=== PATIENT | male | born 1970 | race Caucasian/White ===

== ENCOUNTER 2019-06-29 11:09 | Outpatient (CLI) | payer BC ==
[2019-06-29 11:53] LABS: Hemoglobin 15.1 g/dL (14.0-18.0); Mean Corpuscular HGB CONC 32.4 g/dL (32.0-36.0); Mean Corpuscular Hemoglobin 28.3 pg (27.0-31.0); Mean Corpuscular Volume 87.3 fL (78.0-98.0); Mean Platelet Volume 7.9 fL (7.4-10.4); Platelet Count 260 thou/uL (130-400); RBC Distribution Width 12.2 % (11.5-14.5); Red Blood Cell (RBC) Count 5.36 mill/uL (4.70-6.10); White Blood Cell (WBC) Count 7.8 thou/uL (4.8-10.8)
[2019-06-29 12:14] LABS: INR-International Normal Ratio 0.9; PTT 34.5 SEC (22.9-36.1); Prothrombin Time 12.5 SEC (12.0-14.7)
[2019-06-29 12:18] LABS: Anion Gap 12 mmol/L (10-20); BUN (Urea Nitrogen) 13 mg/dL (8.9-20.6); Calc. Creatinine Clearance 0 mL/min (70-130); Calcium 9.2 mg/dL (7.8-10.44); Carbon Dioxide 26 mmol/L (22-29); Chloride 106 mmol/L (98-107); Estimated GFR-MDRD Greater than 90; Glucose 86 mg/dL (70-105); Potassium 3.8 mmol/L (3.5-5.1); Sodium 140 mmol/L (136-145)
--- NOTE | 2019-06-30 17:56 | EKG ---
Test Reason : Blood Pressure : / mmHG Vent. Rate : 082 BPM Atrial Rate : 082 BPM P-R Int : 128 ms QRS Dur : 088 ms QT Int : 364 ms P-R-T Axes : 019 046 -16 degrees QTc Int : 425 ms Normal sinus rhythm Cannot rule out Inferior infarct , age undetermined Abnormal ECG When compared with ECG of 04-DEC-2004 14:26, Minimal criteria for Inferior infarct are now Present T wave inversion now evident in Inferior leads Confirmed by Precious DELAROSA ([id number]) on 06/30/2019 5:55:56 PM Referred By: [facility] Confirmed By:Precious DELAROSA
== END 2019-06-29 11:10 | disposition home or self-care (01) ==
LOC: LABBT 11:09
PROVIDERS: ATTEND Internal Medicine Cardiovascular Disease
DX: Z01.818 Encounter for other preprocedural examination (principal); I47.1 Supraventricular tachycardia
CPT/HCPCS: 80048; 85027; 85610; 85730; 93005; 93010

== ENCOUNTER 2019-07-03 06:02 | Day surgery (SDC) | payer BC ==
[2019-06-30 09:35] VITALS: BMI 28.8
[2019-07-03] MEDS ORDERED: Heparin 10,000 UNITS/1 ML VIAL ONE (06:47)
[2019-07-03] MEDS ORDERED: Lidocaine 1% (PF) 30 ML VIAL ONE (06:48)
[2019-07-03] MEDS ORDERED: Heparin (Artline) 500 ML ONE (06:48)
[2019-07-03] MEDS ORDERED: Fentanyl 100 MCG/2 ML VIAL ONE (07:30)
[2019-07-03] MEDS ORDERED: Midazolam HCl 2 mg/2 ml Vial ONE (07:30)
[2019-07-03] MEDS ORDERED: Propofol 500 MG/50 ML VIAL ONE ×3 (07:52→10:38)
[2019-07-03] MEDS ORDERED: Isoproterenol 0.2 MG/1 ML AMP ONE (09:13)
[2019-07-03] MEDS ORDERED: Amiodarone 150 MG/3 ML VIAL ONE (10:04)
[2019-07-03] MEDS ORDERED: PHENYLEPHRINE-NS 100 MCG/ML 10 ML SYRINGE ONE (10:25)
--- NOTE | 2019-07-03 12:49 | OP ---
DATE OF PROCEDURE: 07/03/2019 PROCEDURES PERFORMED: Electrophysiology study and radiofrequency ablation. REASON FOR PROCEDURE: Mr. Manzano is a 49-year-old man with history of recurrent palpitation. EKG suggestive of preexcitation and he is here for EP study ablation procedure. DESCRIPTION OF PROCEDURE: The patient received deep sedation by Anesthesia specialist. After adequate level of sedation achieved, the left and right femoral venous areas were prepped, draped, and anesthetized using subcutaneous lidocaine. Under ultrasound guidance, both femoral veins were cannulated x2. On the left side, a 6 and 8-Ugandan sheaths were introduced through which a two decapolar catheters were advanced to the right atrium, right ventricle, His bundle, and CS position. Pacing, mapping, and recording were performed at each location and the following findings were noted. The baseline rhythm was sinus rhythm with an RR interval of 663 milliseconds, AL 135 milliseconds, QRS 84 milliseconds, QT 330 milliseconds , AH 106 milliseconds, and HV 26 milliseconds. The baseline rhythm was not markedly preexcited. Intermittent preexcitation was seen throughout the case. The AV Wenckebach cycle length was 280 milliseconds. Retrograde Wenckebach cycle length was 280 milliseconds with central to distal retrograde CS activation. AV graciela ERP was measured at 600/240 milliseconds. Dual AV node physiology was noted. Tachycardia was induced during extrastimuli testing and burst atrial pacing as well. Following that, through the right-sided access sites, two 8-Ugandan short sheaths were introduced and through which a ThermoCool SFST catheter was advanced to the right atrium. 3D map of the right atrium was obtained. Mapping during tachycardia was performed, which appears to be a narrow complex SVT with VA timing as 126 milliseconds. Central to lateral CS activation noted during the tachycardia, but the earliest activation was in the right inferolateral area of the tricuspid anulus. Further mapping with VA pacing was also performed and during the ventricular pacing, radiofrequency ablation was delivered at the right inferolateral and cavotricuspid isthmus and right lateral area. The previous seen accessory pathway potential and inducibility SVT has resolved with these. The block was observed in the end of the case at 560 milliseconds. AV Wenckebach was 320 milliseconds. AV ERP was less than 600/200 milliseconds. On Isuprel, the VA block was at 450 millisecond. No further inducibility of the SVT was noted. Throughout the case , atrial fibrillation was intermittently induced, which were cardioverted and also amiodarone was used to suppress the easily inducible atrial fibrillation. At the end of the case, the cardiac silhouette did not change. Sheaths were exchanged to short sheaths and hence during the case, SRO long sheaths were used to stabilize the ablation catheter. After this, Vascade closure with all four access sites were performed. The patient tolerated the procedure well, no complications. CONCLUSION: 1. 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 2. Ablation at the right inferolateral accessory pathway eliminated VA conduction, preexcitation and inducibility. 3. Atrial fibrillation was seen during the case, pre and post ablation both, which required amiodarone suppression and cardioversion. 4. Normal AV graciela function with evidence of slow pathway without echo beats pre and post case. PLAN: Continue monitoring for recurrent arrhythmias. Job ID: [id number]
== END 2019-07-03 16:37 | disposition home or self-care (01) ==
LOC: CCL 06:02
PROVIDERS: ATTEND Internal Medicine Cardiovascular Disease
PROC: 4A023FZ Measurement of Cardiac Rhythm, Percutaneous Approach (ICD-10-PCS; principal; 2019-07-03)
PROC: 02583ZZ Destruction of Conduction Mechanism, Percutaneous Approach (ICD-10-PCS; principal; 2019-07-03)
PROC: 4A0234Z Measurement of Cardiac Electrical Activity, Percutaneous Approach (ICD-10-PCS; principal; 2019-07-03)
DX: I47.2 Ventricular tachycardia (principal); I45.6 Pre-excitation syndrome; I48.91 Unspecified atrial fibrillation; Z79.899 Other long term (current) drug therapy
CPT/HCPCS: 76942; 92960; 93005; 93010; 93613; 93623; 93653; C1730; C1732; C1769; J0282; J1644; J2001; J2250; J2704; J3010